=== PATIENT | male | born 2000 | race Caucasian/White ===

== ENCOUNTER → 2024-03-07 11:13 | Outpatient (BNVA) | payer OTHER, SELFPAY | PROVIDERS: Visit Provider Physician Assistant Medical | DX: Z02.1 Encounter for pre-employment examination (principal); R76.11 Nonspecific reaction to tuberculin skin test without active tuberculosis | CPT/HCPCS: 86706 ==

== ENCOUNTER → 2024-03-09 15:18 | Outpatient (BNVA) | payer SELFPAY | DX: Z23 Encounter for immunization (principal) ==

== ENCOUNTER → 2024-03-14 11:06 | Outpatient (BNVA) | payer SELFPAY | DX: Z23 Encounter for immunization (principal) | CPT/HCPCS: 90715 ==

== ENCOUNTER → 2024-04-27 15:29 | Outpatient (BNVA) | payer SELFPAY | DX: Z01.84 Encounter for antibody response examination (principal) | CPT/HCPCS: 86706 ==

== ENCOUNTER → 2024-06-01 08:01 | Outpatient (BNVA) | payer SELFPAY | DX: Z02.0 Encounter for examination for admission to educational institution (principal) ==